=== PATIENT | male | born 1945 | race Caucasian/White ===

== ENCOUNTER → 2016-08-16 | Outpatient (CLI) | payer OTHER ==
[2016-08-16 13:53] LABS: ESTIMATED AVERAGE GLUCOSE 163 mg/dl; HA1C FLAG Normal (Normal)
[2016-08-16 14:14] LABS: RATIO 6.9 mcg/mg (0-30.0)
[2016-08-16 14:27] LABS: ALT/SGPT 30 U/L (12-78); BLOOD UREA NITROGEN 23 mg/dl (7-18); BUN/CREATININE RATIO 22.5 (10-20); CALCIUM 9.2 mg/dl (8.5-10.1); CARBON DIOXIDE 28 mmol/L (21-32); CHLORIDE 102 mmol/L (98-107); CHOLESTEROL 136 mg/dl (0-200); GLUCOSE 209 mg/dl (70-99); POTASSIUM 4.1 mmol/L (3.5-5.1); SODIUM 140 mmol/L (136-145); TRIGLYCERIDES 152 mg/dl (0-150); VERY LOW DENSITY LIPOPROT CALC 30 mg/dl
[2016-08-16 14:50] LABS: CHOLESTEROL/HDL RATIO 3.7; HDL CHOLESTEROL 37 mg/dl; LDL CHOLESTEROL CALCULATED 69 mg/dl
== END | disposition home or self-care (01) ==
LOC: C.LABMFLN 08:13
PROVIDERS: ATTEND Family Medicine
DX: I10 Essential (primary) hypertension (principal); E11.9 Type 2 diabetes mellitus without complications; E78.00 Pure hypercholesterolemia, unspecified; E03.9 Hypothyroidism, unspecified

== ENCOUNTER → 2018-02-18 | Outpatient (CLI) | payer OTHER ==
[2018-02-18 13:35] LABS: ALT/SGPT 36 U/L (12-78); BLOOD UREA NITROGEN 24 mg/dl (7-18); CALCIUM 9.1 mg/dl (8.5-10.1); CARBON DIOXIDE 27 mmol/L (21-32); CHOLESTEROL 132 mg/dl (0-200); GLUCOSE 158 mg/dl (70-99); LDL CHOLESTEROL (DIRECT) 86 mg/dl; POTASSIUM 4.2 mmol/L (3.5-5.1); SODIUM 137 mmol/L (136-145)
== END | disposition home or self-care (01) ==
LOC: C.LABMFLN 07:32
PROVIDERS: ATTEND Family Medicine
DX: Z00.00 Encounter for general adult medical examination without abnormal findings (principal); E11.9 Type 2 diabetes mellitus without complications; E78.00 Pure hypercholesterolemia, unspecified; E03.9 Hypothyroidism, unspecified; I10 Essential (primary) hypertension